=== PATIENT | male | born 1955 | race American Indian/Alaskan Native ===

== ENCOUNTER 2016-12-18 07:56 | Emergency (ER) | payer MEDICARE ==
[2016-12-18 08:42] VITALS: BP 122/82
--- NOTE | 2016-12-18 11:35 | Emergency Department Report ---
ED Extremity Problem HPI - General Chief complaint: Extremity Injury, Lower Stated complaint: RT KNEE PAIN Time Seen by Provider: 12/18/16 11:20 Source: patient Mode of arrival: Ambulatory Limitations: No Limitations - History of Present Illness Initial comments: PT c/o R knee pain and swelling x 8-9 days. PT states he does not know what happened. PT states the pain and swelling wax and wan but seem to be improving. PT c/o pain to the medial R knee. PT states he has applied icy hot with some relief. MD Complaint: joint paint Onset/Timin -: week(s) Location: right, knee History of Same: No -: No fever Severity scale (0 -10): 6 Quality: aching, sharp (after walking a few steps ) Consistency: intermittent Improves with: medication, rest Worsens with: weight bearing, walking (pt states the pain will usually hit after taking a few steps ) Associated Symptoms: denies other symptoms - Related Data Home Medications Medication Instructions Recorded Confirmed Last Taken Aspirin EC [Aspirin Enteric Coated 81 mg PO QDAY 09/20/14 09/20/14 Unknown TAB] Previous Rx's Medication Instructions Recorded Last Taken Type Atorvastatin [Lipitor] 40 mg PO QHS #30 tablet 09/20/14 Unknown Rx Carvedilol [Coreg] 25 mg PO BID #60 tablet 09/20/14 Unknown Rx Furosemide [Lasix TAB] 20 mg PO BID #60 tablet 09/20/14 Unknown Rx Lisinopril [Zestril TAB] 40 mg PO QDAY #30 tablet 09/20/14 Unknown Rx Spironolactone [Aldactone] 25 mg PO QDAY #30 tablet 09/20/14 Unknown Rx amLODIPine [Norvasc] 10 mg PO DAILY #30 tablet 09/20/14 Unknown Rx glyBURIDE [Diabeta] 5 mg PO BID #60 tablet 09/20/14 Unknown Rx metFORMIN [Glucophage] 1,000 mg PO BID #60 tablet 09/20/14 Unknown Rx traMADol [Ultram] 50 mg PO Q6HR PRN #12 tablet 12/18/16 Unknown Rx Allergies Allergy/AdvReac Type Severity Reaction Status Date / Time No Known Allergies Allergy Unverified 09/20/14 02:25 ED Review of Systems ROS: Stated complaint: RT KNEE PAIN Other details as noted in HPI Comment: All other systems reviewed and negative Constitutional: denies: fever, malaise Musculoskeletal: as per HPI Skin: denies: rash, change in color ED Past Medical Hx - Past Medical History Previous Medical History?: Yes Hx Hypertension: Yes Hx Diabetes: Yes Additional medical history: HIGH CHOLESTEROL - Surgical History Past Surgical History?: Yes Additional Surgical History: DEFIBRILLATOR,OPEN HEART SURGERY - Social History Smoking Status: Never Smoker Substance Use Type: None - Medications Home Medications: Home Medications Medication Instructions Recorded Confirmed Last Taken Type Aspirin EC [Aspirin Enteric Coated 81 mg PO QDAY 09/20/14 09/20/14 Unknown History TAB] Atorvastatin [Lipitor] 40 mg PO QHS #30 tablet 09/20/14 Unknown Rx Carvedilol [Coreg] 25 mg PO BID #60 tablet 09/20/14 Unknown Rx Furosemide [Lasix TAB] 20 mg PO BID #60 tablet 09/20/14 Unknown Rx Lisinopril [Zestril TAB] 40 mg PO QDAY #30 tablet 09/20/14 Unknown Rx Spironolactone [Aldactone] 25 mg PO QDAY #30 tablet 09/20/14 Unknown Rx amLODIPine [Norvasc] 10 mg PO DAILY #30 tablet 09/20/14 Unknown Rx glyBURIDE [Diabeta] 5 mg PO BID #60 tablet 09/20/14 Unknown Rx metFORMIN [Glucophage] 1,000 mg PO BID #60 tablet 09/20/14 Unknown Rx traMADol [Ultram] 50 mg PO Q6HR PRN #12 tablet 12/18/16 Unknown Rx ED Physical Exam - General Limitations: No Limitations General appearance: alert, in no apparent distress - Head Head exam: Present: atraumatic, normocephalic - Eye Eye exam: Present: normal appearance - Neck Neck exam: Present: normal inspection - Respiratory Respiratory exam: Absent: respiratory distress, wheezes - Cardiovascular Cardiovascular Exam: Present: regular rate, normal rhythm - Extremities Exam Extremities exam: Present: normal inspection, full ROM. Absent: tenderness, pedal edema, joint swelling - Expanded Lower Extremity Exam Right Knee exam: Present: normal inspection, full ROM (with crepitus ), full knee extension. Absent: tenderness, swelling, effusion Lower Leg exam: Absent: tenderness, ecchymosis, deformity, Dayne's sign Ankle exam: Absent: tenderness, swelling - Back Exam Back exam: Present: normal inspection, full ROM - Neurological Exam Neurological exam: Present: alert, oriented X3 - Psychiatric Psychiatric exam: Present: normal affect, normal mood - Skin Skin exam: Present: warm, dry ED Course Vital Signs 12/18/16 08:37 Temperature 97.8 F Pulse Rate 82 Respiratory 16 Rate Blood Pressure 122/82 O2 Sat by Pulse 99 Oximetry - Reevaluation(s) Reevaluation #1: 12/18/16 11:36 PT is currently on ASA therapy q day as well as fish oil, will hold off on NSAIDs due to risk of increase bleeding. pt aware of plan of care. Reevaluation #2: 12/18/16 12:22 PT aware of my interpretation of XR. PT states he is unable to wait for the radiologist reading of xr. - Pulse Oximetry Interpretation Digit-Finger Initial Pulse Oximetry Readin Actions Taken: none ED Medical Decision Making - Radiology Data Radiology results: image reviewed interpreted by me: R knee - no acute process fb seen on exam - consistent with pt's hx of vein surgery - Differential Diagnosis oa, effusion, strain Critical care attestation.: If time is entered above; I have spent that time in minutes in the direct care of this critically ill patient, excluding procedure time. ED Disposition Clinical Impression: Acute pain of right knee Disposition: DISCHARGED TO HOME OR SELFCARE Is pt being admited?: No Does the pt Need Aspirin: No Condition: Stable Instructions: Knee Sprain (ED), Knee Pain (ED), RICE Therapy (ED) Additional Instructions: No driving or ETOH after Ultram Prescriptions: traMADol [Ultram] 50 mg PO Q6HR PRN #12 tablet PRN Reason: Pain Referrals: PRIMARY CAREMD [Primary Care Provider] - 3-5 Days SIN AMATO MD [Staff Physician] - 3-5 Days Time of Disposition: 12:23
--- NOTE | 2016-12-19 07:35 | XRay Report ---
RIGHT KNEE, 3 views: History: Right knee pain and swelling. A large joint effusion is suspected on the lateral image. The bony structures and joint space are unremarkable. No acute injury or bone lesion. Multiple surgical makayla are noted in the medial soft tissues. IMPRESSION: Joint effusion. No bony abnormality is detected. If internal derangement is suspected, MRI right knee without contrast recommended.
== END 2016-12-18 12:40 | disposition home or self-care (01) ==
LOC: ED 07:56
DX: M25.561 Pain in right knee (principal); I10 Essential (primary) hypertension; E11.9 Type 2 diabetes mellitus without complications
CPT/HCPCS: 99283